=== PATIENT | male | born 1985 | race Hispanic/Latino ===

== ENCOUNTER 2017-08-31 13:25 | Emergency (ER) | payer SELFPAY ==
[2017-08-31] MEDS ORDERED: ASPIRIN 81 MG CHEWABLE TABLET ONE (13:46)
[2017-08-31] MEDS ORDERED: NA CHLORIDE 0.9% 1,000 ML ONE ×2 (13:46→13:47)
[2017-08-31 14:06] LABS: Protime INR 1.05
[2017-08-31 14:10] LABS: Absolute Lymphocytes (CBC) 1.5 K/uL (0.7-4.9); Absolute Monocytes 0.7 K/uL (0.1-1.3); Absolute Neutrophil 7.4 K/uL (1.8-8.0); Basophils % 0.2 % (0-1.3); Hematocrit 39.5 % (39.6-49.0); Lymphocytes % 15.5 % (15.3-44.8); MCV 90.5 fL (80-100); MPV 8.6 fL (7.6-11.3); Monocytes % 7.5 % (3.3-12.3); RBC Red Blood Cell Count 4.36 M/uL (4.33-5.43)
[2017-08-31 14:14] LABS: Bicarbonate 28 mEq/L (21-31); Glucose Level 139 mg/dL (65-120); Potassium 3.3 mEq/L (3.6-5.0); Sodium Level 139 mEq/L (135-145)
[2017-08-31 14:20] LABS: ALT/SGPT 24 IU/L (10-60); AST/SGOT 25 IU/L (10-42); Albumin 4.5 g/dL (3.2-5.5); Alkaline Phosphatase 74 IU/L (42-121); BUN Blood Urea Nitrogen 18 mg/dL (6-20); Bilirubin Direct 0.1 mg/dL (0-0.2); Bilirubin Total 0.5 mg/dL (0.3-1.2); Creatine Phosphokinase 486 IU/L (22-269); Magnesium 1.9 mg/dL (1.8-2.5); Protein, Total 7.8 g/dL (6.0-8.3)
[2017-08-31 14:23] LABS: CKMB Creatine Kinase MB 4.1 ng/ml (0.3-4.0)
--- NOTE | 2017-08-31 14:50 | RAD REPORT ---
EXAM DESCRIPTION: [place] Single View08/31/2017 2:07 pm CLINICAL HISTORY: Hypertension COMPARISON: none FINDINGS: The lungs appear clear of acute infiltrate. The heart is mildly enlarged IMPRESSION: No acute abnormalities displayed
--- NOTE | 2017-08-31 15:41 | EDPHYS ---
Physician Documentation [facility] Name: Piyush Tyler Age: 32 yrs Sex: Male : 1985 Arrival Date: 08/31/2017 Time: 13:26 Bed 27 Private MD: ED Physician Preston Haro HPI: 08/31 13:31 This 32 yrs old Male presents to ER via EMS with complaints of High Blood cp Pressure. 13:31 The patient has elevated blood pressure and discovered this [place] fire station. Onset: The cp symptoms/episode began/occurred history of hypertension but has been unable to f/u with doctor. Reports has been low on current hypertensive medication, Hydralazine 25 mg, recently. Took last pill [employer]. Associated signs and symptoms: Pertinent negatives: chest pain, dizziness, headache, lightheadedness, vomiting, weakness. Severity of symptoms: At its worst the blood pressure was 211 mm Hg. 13:35 Patient reports feeling "twinge" right side of chest earlier today but denies pain. cp Historical: - Allergies: 13:28 No Known Allergies; aj - Home Meds: 13:28 Hydralazine Oral [Active]; aj - PMHx: 13:28 Hypertension; aj - PSHx: 13:28 None; aj - Immunization history:: Adult Immunizations up to date. - Social history:: Smoking status: Patient/guardian denies using tobacco. - Ebola Screening: : Patient negative for fever greater than or equal to 101.5 degrees Fahrenheit, and additional compatible Ebola Virus Disease symptoms Patient denies exposure to infectious person Patient denies travel to an Ebola-affected area in the 21 days before illness onset No symptoms or risks identified at this time. ROS: 13:30 Eyes: Negative for injury, pain, redness, and discharge. cp 13:30 Constitutional: Negative for body aches, chills, fever, poor PO intake. 13:30 ENT: Negative for drainage from ear(s), ear pain, sore throat, difficulty swallowing, difficulty handling secretions. 13:30 Neck: Negative for pain with movement, pain at rest, stiffness, swelling, tenderness, bony tenderness. 13:30 Cardiovascular: Negative for chest pain, edema, palpitations. 13:30 Respiratory: Negative for cough, shortness of breath, wheezing. 13:30 Abdomen/GI: Negative for abdominal pain, nausea, vomiting, and diarrhea, black/tarry stool, rectal bleeding. 13:30 Back: Negative for pain at rest, pain with movement, radiated pain. 13:30 MS/extremity: Negative for injury or acute deformity, pain, paresthesias, swelling, tenderness, warmth. 13:30 Skin: Negative for cellulitis, rash. 13:30 Neuro: Negative for altered mental status, dizziness, headache, seizure activity, syncope, near syncope, weakness. 13:30 All other systems are negative. Exam: 13:30 ECG was reviewed by the Attending Physician. cp 13:38 Constitutional: The patient appears in no acute distress, alert, awake, comfortable, cp non-diaphoretic, non-toxic, well developed, well nourished. 13:38 Head/Face: Normocephalic, atraumatic. Eyes: Pupils equal round and reactive to light, cp extra-ocular motions intact. Lids and lashes normal. Conjunctiva and sclera are non-icteric and not injected. Cornea within normal limits. Periorbital areas with no swelling, redness, or edema. ENT: Nares patent. No nasal discharge, no septal abnormalities noted. Tympanic membranes are normal and external auditory canals are clear. Oropharynx with no redness, swelling, or masses, exudates, or evidence of obstruction, uvula midline. Mucous membranes moist. Neck: Trachea midline, no thyromegaly or masses palpated, and no cervical lymphadenopathy. Supple, full range of motion without nuchal rigidity, or vertebral point tenderness. No Meningismus. Chest/axilla: Normal chest wall appearance and motion. Nontender with no deformity. No lesions are appreciated. Cardiovascular: Regular rate and rhythm with a normal S1 and S2. No gallops, murmurs, or rubs. Normal PMI, no JVD. No pulse deficits. Respiratory: Lungs have equal breath sounds bilaterally, clear to auscultation and percussion. No rales, rhonchi or wheezes noted. No increased work of breathing, no retractions or nasal flaring. Abdomen/GI: Soft, non-tender, with normal bowel sounds. No distension or tympany. No guarding or rebound. No evidence of tenderness throughout. Skin: Warm, dry with normal turgor. Normal color with no rashes, no lesions, and no evidence of cellulitis. Neuro: Awake and alert, GCS 15, oriented to person, place, time, and situation. Cranial nerves II-XII grossly intact. Motor strength 5/5 in all extremities. Sensory grossly intact. Cerebellar exam normal. Normal gait. Vital Signs: 13:28 BP 174 / 101; Pulse 96; Resp 20; Temp 98.5; Pulse Ox 99% on R/A; Weight 111.13 kg; aj Height 5 ft. 10 in. (177.80 cm); Pain 0/10; 13:54 BP 157 / 95; Pulse 87; Resp 15; Pulse Ox 99% on R/A; aj 15:05 BP 153 / 100; Pulse 88; Resp 19; Pulse Ox 99% on R/A; aj 13:28 Body Mass Index 35.15 (111.13 kg, 177.80 cm) aj MDM: 13:33 Patient medically screened. cp 14:00 Differential diagnosis: hypertensive crisis, Malignant HTN, CVA, cardiac arrythmia. cp 15:38 Data reviewed: vital signs, nurses notes, lab test result(s), EKG, radiologic studies, cp plain films. 15:38 Counseling: I had a detailed discussion with the patient and/or guardian regarding: the cp historical points, exam findings, and any diagnostic results supporting the discharge/admit diagnosis, the presence of at least one elevated blood pressure reading (>120/80) during this emergency department visit, lab results, radiology results, the need for outpatient follow up, a family practitioner, to return to the emergency department if symptoms worsen or persist or if there are any questions or concerns that arise at home. 15:38 Test interpretation: by ED physician or midlevel provider: ECG. Response to treatment: cp the patient's symptoms have markedly improved after treatment, Patient reports taking last tablet of hydralazine [employer]. Will discharge to home with RX for hydralazine 25 mg TID. 08/31 13:29 Order name: Basic Metabolic Panel; Complete Time: 14:26 cp 08/31 14:31 Interpretation: Normal except: K 3.3; GLUC 139. cp 08/31 13:29 Order name: CBC with Diff; Complete Time: 14:26 cp 08/31 13:29 Order name: Ckmb; Complete Time: 14:26 cp 08/31 13:29 Order name: CPK; Complete Time: 14:26 cp 08/31 13:29 Order name: LFT's; Complete Time: 14:26 cp 0605 13:29 Order name: Magnesium; Complete Time: 14:26 cp 06/05 13:29 Order name: PT-INR; Complete Time: 14:26 cp 06 13:29 Order name: Ptt, Activated; Complete Time: 14:26 cp 06/05 13:29 Order name: Troponin (emerg Dept Use Only); Complete Time: 14:26 cp 06/ 13:29 Order name: XRAY Chest (1 view); Complete Time: 15:25 cp 06/05 15:26 Interpretation: Report review. cp 08/31 14:41 Order name: Urine Dipstick--Ancillary (enter results) iw 08/31 13:29 Order name: EKG; Complete Time: 13:30 cp 08/31 13:29 Order name: Cardiac monitoring; Complete Time: 13:57 cp 08/31 13:29 Order name: EKG - Nurse/Tech; Complete Time: 13:57 cp 08/31 13:29 Order name: IV Saline Lock; Complete Time: 13:57 cp 06 13:29 Order name: Labs collected and sent; Complete Time: 13:57 cp 08/31 13:29 Order name: O2 Per Protocol; Complete Time: 13:57 cp 05 13:29 Order name: O2 Sat Monitoring; Complete Time: 13:57 cp 08/31 13:29 Order name: Urine Dipstick-Ancillary (obtain specimen); Complete Time: 13:57 cp EC:30 Rate is 100 beats/min. [place] interval is prolonged at 210 msec. QRS interval is normal. QT cp interval is normal. No ST changes noted. Interpreted by me. Reviewed by me. Administered Medications: 13:54 Drug: NS 0.9% 1000 ml Route: IV; Rate: 1 bolus; Site: right forearm; aj 15:53 Follow up: Response: No adverse reaction; IV Status: Completed infusion; IV Intake: aj 1000ml 13:56 Not Given (Physician Discretion): HydrALAZINE 50 mg PO once aj 13:57 Drug: Aspirin Chewable Tablet 324 mg Route: PO; aj 15:11 Follow up: Response: No adverse reaction aj Disposition: 17:44 Co-signature as Attending Physician, Preston Haro MD. rn Disposition: 08/31/17 15:40 Discharged to Home. Impression: Hypertensive heart disease. - Condition is Stable. - Discharge Instructions: Hypertension, How to Take Your Blood Pressure, [id number]-Jror, Managing Your High Blood Pressure. - Prescriptions for Hydralazine 25 mg Oral Tablet - take 1 tablet by ORAL route 3 times per day with food; 90 tablet. - Medication Reconciliation Form, Thank You Letter, Antibiotic Education, Prescription Opioid Use form. - Follow up: Private Physician; When: 1 - 2 days; Reason: hypertension. - Problem is an acute exacerbation. - Symptoms have improved. Signatures: Dispatcher [employer] EDIvana Uribe RN RN aj Nieto, Roman, MD MD rn Page, Corey, PA PA cp Corrections: (The following items were deleted from the chart) 15:53 15:40 08/31/2017 15:40 Discharged to Home. Impression: Hypertensive heart disease. aj Condition is Stable. Forms are Medication Reconciliation Form, Thank You Letter, Antibiotic Education, Prescription Opioid Use. Follow up: Private Physician; When: 1 - 2 days; Reason: hypertension. Problem is an acute exacerbation. Symptoms have improved. cp
--- NOTE | 2017-08-31 15:41 | ER ---
Nurse's Notes [facility] Name: Piyush Tyler Age: 32 yrs Sex: Male : 1985 Arrival Date: 08/31/2017 Time: 13:26 Bed 27 Private MD: Diagnosis: Hypertensive heart disease Presentation: 08/31 13:27 Presenting complaint: EMS states: Hypertension today while at work. Patient reports aj taking his home HTN medications at 1230 today just [employer]. Transition of care: patient was not received from another setting of care. Onset of symptoms was August 31, 2017. Risk Assessment: Do you want to hurt yourself or someone else? Patient reports no desire to harm self or others. Care prior to arrival: None. 13:27 Method Of Arrival: EMS: [facility] 13:27 Acuity: COLLIN 3 aj Triage Assessment: 13:28 General: Appears in no apparent distress. comfortable, Behavior is calm, cooperative, aj appropriate for age. Pain: Denies pain. Neuro: Level of Consciousness is awake, alert, obeys commands, Oriented to person, place, time, situation, Appropriate for age. Cardiovascular: Denies chest pain, Capillary refill < 3 seconds in bilateral fingers Patient's skin is warm and dry. Respiratory: Airway is patent Respiratory effort is even, unlabored, Respiratory pattern is regular, symmetrical. Derm: Skin is intact, is healthy with good turgor, Skin is pink, warm \T\ dry. normal. Historical: - Allergies: 13:28 No Known Allergies; aj - Home Meds: 13:28 Hydralazine Oral [Active]; aj - PMHx: 13:28 Hypertension; aj - PSHx: 13:28 None; aj - Immunization history:: Adult Immunizations up to date. - Social history:: Smoking status: Patient/guardian denies using tobacco. - Ebola Screening: : Patient negative for fever greater than or equal to 101.5 degrees Fahrenheit, and additional compatible Ebola Virus Disease symptoms Patient denies exposure to infectious person Patient denies travel to an Ebola-affected area in the 21 days before illness onset No symptoms or risks identified at this time. Screenin:54 Abuse screen: Denies threats or abuse. Denies injuries from another. Nutritional aj screening: No deficits noted. Tuberculosis screening: No symptoms or risk factors identified. Fall Risk None identified. Assessment: 13:55 Reassessment: See triage. aj 14:41 Reassessment: Patient appears in no apparent distress at this time. Patient and/or iw family updated on plan of care and expected duration. Pain level reassessed. Patient is alert, oriented x 3, equal unlabored respirations, skin warm/dry/pink. pt ambulated to bathroom with steady gait, urine specimen collected, pt placed back in bed 27, placed back on monitor, VSS. 15:51 Reassessment: Patient appears in no apparent distress at this time. Patient and/or aj family updated on plan of care and expected duration. Pain level reassessed. Patient is alert, oriented x 3, equal unlabored respirations, skin warm/dry/pink. Patient denies pain at this time. Vital Signs: 13:28 BP 174 / 101; Pulse 96; Resp 20; Temp 98.5; Pulse Ox 99% on R/A; Weight 111.13 kg; aj Height 5 ft. 10 in. (177.80 cm); Pain 0/10; 13:54 BP 157 / 95; Pulse 87; Resp 15; Pulse Ox 99% on R/A; aj 15:05 BP 153 / 100; Pulse 88; Resp 19; Pulse Ox 99% on R/A; aj 13:28 Body Mass Index 35.15 (111.13 kg, 177.80 cm) aj ED Course: 13:26 Patient arrived in ED. aj 13:27 Nikolay Norton PA is PHCP. cp 13:27 Srinivas Chase MD is Attending Physician. cp 13:28 Triage completed. aj 13:28 Arm band placed on left wrist. Patient placed in an exam room. EKG completed in triage. aj Results shown to MD. 13:31 Preston Haro MD is Attending Physician. cp 13:38 Ivana Walker, HIMANSHU is Primary Nurse. aj 13:40 EKG done, by hydro technician. reviewed by Nikolay DUDLEY. at1 13:54 Patient has correct armband on for positive identification. aj 13:54 Inserted saline lock: 20 gauge in right forearm, using aseptic technique. Blood aj collected. 14:07 XRAY Chest (1 view) In Process Unspecified. EDMS 15:51 No provider procedures requiring assistance completed. IV discontinued, intact, aj bleeding controlled, No redness/swelling at site. Pressure dressing applied. Administered Medications: 13:54 Drug: NS 0.9% 1000 ml Route: IV; Rate: 1 bolus; Site: right forearm; aj 15:53 Follow up: Response: No adverse reaction; IV Status: Completed infusion; IV Intake: aj 1000ml 13:56 Not Given (Physician Discretion): HydrALAZINE 50 mg PO once aj 13:57 Drug: Aspirin Chewable Tablet 324 mg Route: PO; aj 15:11 Follow up: Response: No adverse reaction aj Intake: 15:53 IV: 1000ml; Total: 1000ml. aj Outcome: 15:40 Discharge ordered by MD. cp 15:51 Discharged to home ambulatory. aj 15:51 Condition: good 15:51 Discharge instructions given to patient, Instructed on discharge instructions, follow up and referral plans. medication usage, Demonstrated understanding of instructions, follow-up care, medications, Prescriptions given X 1. 15:53 Patient left the ED. aj Signatures: Dispatcher [employer] EDIvana Uribe RN RN aj Williams, Irene, RN RN iw gonzales, Amanda, hand candle molder EKG Tat1 Nikolay Norton PA PA cp
[2017-08-31 17:03] LABS: Urine Blood NEGATIVE (NEG); Urine Glucose NEGATIVE (NEG); Urine Protein NEGATIVE (NEG)
--- NOTE | 2017-09-01 07:43 | EKG ---
Test Date: 2017-08-31 Test Time: 13:26:52 Humane Officer: SANGITA MEASUREMENT RESULTS: Intervals: Rate: 100 LA: 210 QRSD: 96 QT: 348 QTc: 448 Ransom: P: 56 LA: 210 QRS: 46 T: 44 INTERPRETIVE STATEMENTS: Sinus rhythm with 1st degree AV block Otherwise normal ECG No previous ECG available for comparison Electronically Signed On 09-01-17 07:42:58 CDT by Omer Gillespie
== END 2017-08-31 15:53 | disposition home or self-care (01) ==
LOC: ER 13:25
DX: I11.9 Hypertensive heart disease without heart failure (principal)
CPT/HCPCS: 36415; 71045; 80048; 80076; 81003; 82550; 82553; 83735; 84484; 85025; 85610; 85730; 93005; 96360; 96361; 99284; J7030